=== PATIENT | male | born 1990 | race Caucasian/White ===

== ENCOUNTER 2017-04-04 01:32 | Emergency (ER) | payer OTHER ==
--- NOTE | 2017-04-04 07:09 | REP ---
Clinical: Weakness . Comparison: None . Technique: PA and lateral. Findings: The mediastinum and cardiac silhouette are normal. The lung espitia are clear and without acute consolidation, effusion, or pneumothorax. The skeletal structures are intact and normal. Impression: No acute cardiopulmonary process. If the patient remains symptomatic consider chest CT for further investigation. Signed by Panchito Bernal MD 04/04/2017 06:59 A
[2017-04-04 07:11] LABS: BASO # 0.1 K/mm3 (0.0-0.2); EOS # 0.1 K/mm3 (0.0-0.50); EOS % 1.9 % (0.0-3.0); LARGE UNSTAINED CELL # 0.2 K/mm3 (0.0-0.4); LARGE UNSTAINED CELL % 2.8 % (0.0-4.0); LYMPH # 1.6 K/mm3 (1.5-6.5); LYMPH % 25.3 % (24.0-44.0); MEAN CORPUSCULAR HEMOGLOBIN 31.7 pg (27.0-33.0); MEAN CORPUSCULAR HGB CONC 34.3 g/dl (32.0-36.5); MEAN CORPUSCULAR VOLUME 92.5 fl (80.0-96.0); MONO # 0.3 K/mm3 (0.0-0.8); MONO % 5.3 % (0.0-5.0); NEUTROPHILS % 63.8 % (36.0-66.0); PLATELET COUNT, AUTOMATED 173 k/mm3 (150-450); RED CELL DISTRIBUTION WIDTH 12.2 % (11.5-14.5); WHITE BLOOD COUNT 6.3 K/mm3 (4.0-10.0)
[2017-04-04 07:16] LABS: ALBUMIN 3.9 GM/DL (3.2-5.2); ALBUMIN/GLOBULIN RATIO 1.05 (1.00-1.93); ALKALINE PHOSPHATASE 39 U/L (45-117); ALT/SGPT 21 U/L (12-78); ANION GAP 3 MEQ/L (8-16); AST/SGOT 21 U/L (15-37); BILIRUBIN,DIRECT 0.1 MG/DL (0.0-0.2); BILIRUBIN,TOTAL 0.8 MG/DL (0.2-1.0); BLOOD UREA NITROGEN 19 MG/DL (7-18); CALCIUM LEVEL 8.7 MG/DL (8.5-10.1); CARBON DIOXIDE LEVEL 32 MEQ/L (21-32); CHLORIDE LEVEL 102 MEQ/L (98-107); CREATININE FOR GFR 0.83 MG/DL (0.70-1.30); GLOMERULAR FILTRATION RATE > 60.0 (>60); GLUCOSE, FASTING 92 MG/DL (70-105); POTASSIUM SERUM 4.4 MEQ/L (3.5-5.1); SODIUM LEVEL 137 MEQ/L (136-145); TOTAL PROTEIN 7.6 GM/DL (6.4-8.2)
[2017-04-04] MEDS ORDERED: ZOFR4TAB3 PO (07:56)
[2017-04-04] MEDS ORDERED: MECL-68 PO (07:56)
[2017-04-04 08:27] VITALS: BP 101/61
--- NOTE | 2017-04-05 16:04 | ECGEPIP ---
Stationary ECG Study [facility] - ED Test Date: 2017-04-04 Pat Name: KIM ROMERO Department: Room: - Gender: M Trading Analyst: cheng : [id number] Requested By: MEME Gutierrez Order Number: [id number] Reading MD: Komal Garcia Measurements Intervals [place] Rate: 46 P: 41 CO: 132 QRS: 40 QRSD: 101 T: 29 QT: 393 QTc: 344 Interpretive Statements SINUS BRADYCARDIA ST ELEVATION, PROBABLY EARLY REPOLARIZATION TALL T-WAVES, R/O HYPERKALEMIA NO PRIOR FOR COMPARISON Electronically Signed On 04-05-2017 16:03:55 EDT by Komal Garcia
== END 2017-04-04 08:29 | disposition home or self-care (01) ==
LOC: M ED 03:03
DX: H93.19 Tinnitus, unspecified ear (principal); H81.399 Other peripheral vertigo, unspecified ear